=== PATIENT | female | born 1945 | race Caucasian/White ===

== ENCOUNTER → 2020-08-10 | Outpatient (CLI) | payer MEDICARE, OTHER ==
[~2020-08-10] MED LIST: LOSA50 PO
== END | disposition home or self-care (01) ==
LOC: LAB SHORT 16:40 → LAB 16:40
DX: N39.0 Urinary tract infection, site not specified (principal)
CPT/HCPCS: 87086

== ENCOUNTER → 2021-08-30 | Outpatient (CLI) | payer MEDICARE, OTHER ==
[2021-09-02 15:12] LABS: HPV 16 Negative (Negative); HPV 18 Negative (Negative); HPV OTHER HR TYPES Negative (Negative)
== END | disposition home or self-care (01) ==
LOC: LAB 19:02 → LAB SHORT 19:02
PROVIDERS: Family Medicine
DX: Z12.72 Encounter for screening for malignant neoplasm of vagina (principal); Z90.710 Acquired absence of both cervix and uterus
CPT/HCPCS: 87624; G0145

== ENCOUNTER 2023-06-15 08:06 | Day surgery (SDC) | payer MEDICARE, OTHER ==
[2023-06-15] VITALS (8 sets, daily range): BP systolic 120–158; BP diastolic 62–79
[~2023-06-15] VITALS: Ht 162.6 cm; Wt 64.4 kg
[~2023-06-15 08:06] MED LIST changes: +ALBU90OI; +ATOR20 PO; +Amlodipine Bes2.5 MG PO; +Aspir 8181 MG PO; +FLUTICASONE-SA1 EAC1 INH; +METO25 PO; +NITR.4SL SL
[2023-06-15] MEDS ORDERED: FLUT1DIS5 INH (09:00)
--- NOTE | 2023-06-15 10:40 | NUR ---
ASSUMED CARE OF PT. REPORT FROM JONY AMADOR. REDIAL SITE SOFT AND NON-TENDER PER PT. NO BLEEDING NOTED.
--- NOTE | 2023-06-15 10:41 | NUR ---
PT SITTING UP IN RECLINER. PT A&Ox4. PT GIVEN COFFEE PE REQUEST. AT BEDSIDE.
--- NOTE | 2023-06-15 11:45 | NUR ---
RIGHT RADIAL SITE TR BAND HAS BEEN FULLY DEFLATED. NO BLEEDING OR SWELLING NOTED AT SITE. VSS, CALL LIGHT IN REACH. PT CURRENTLY EATING LUNCH, VISITING WITH .
--- NOTE | 2023-06-15 12:34 | NUR ---
PT GIVEN DC INSTRUCTIONS AND VERBALIZED UNDERSTANDING. IV OUT. PT CHANGED. TR BAND REMOVED. CLOTH DOT PLACED. ARM BOARD APPLIED. SITE SOFT AND NON-TENDER. NO EVIDENCE OF BLEEDING. PT TAKEN TO LBY VIA WC. TO TAKE PT HOME.
== END 2023-06-15 12:18 | disposition home or self-care (01) ==
LOC: MHTC 08:06
DX: I25.118 Atherosclerotic heart disease of native coronary artery with other forms of angina pectoris (principal); I10 Essential (primary) hypertension; E78.5 Hyperlipidemia, unspecified; Z72.0 Tobacco use
CPT/HCPCS: 76937; 93454; 99152; A9270; C1769; C1887; C1894; J1644; J2250; J3010; J7030; J7050; Q9967

== ENCOUNTER → 2025-06-09 | Outpatient (CLI) | payer MEDICARE, OTHER ==
[~2025-06-09] MED LIST changes: +ALBUTEROL SULFATE HF; +ALEN70 PO; +CLOP75 PO; +FLUT1DIS5 INH; +Isosorbide Mono30 MG PO
== END ==
LOC: LAB 12:09 → LAB SHORT 12:09
DX: N39.0 Urinary tract infection, site not specified (principal)
CPT/HCPCS: 87077; 87086; 87186